=== PATIENT | female | born 1990 | race African-American/Black ===

== ENCOUNTER 2022-10-01 12:15 | Day surgery (SDC) | payer OTHER ==
[2022-10-01 12:44] VITALS: BMI 32.5
[2022-10-01 14:21] LABS: ALT (SGPT) 10 U/L (8-55); AST (SGOT) 9 U/L (5-34); Albumin 3.6 g/dL (3.5-5.0); Alkaline Phosphatase 111 U/L (40-110); Anion Gap 15 mmol/L (10-20); BUN (Urea Nitrogen) 5 mg/dL (7.0-18.7); Bilirubin, Total 0.6 mg/dL (0.2-1.2); Calc. Creatinine Clearance 205 mL/min (70-130); Calcium 9.4 mg/dL (7.8-10.44); Carbon Dioxide 20 mmol/L (22-29); Chloride 106 mmol/L (98-107); Estimated GFR 122; Globulin 3.1 g/dL (2.4-3.5); Glucose 112 mg/dL (70-105); Potassium 3.7 mmol/L (3.5-5.1); Protein, Total 6.7 g/dL (6.0-8.3); Sodium 137 mmol/L (136-145)
[2022-10-01 20:25] LABS: Hemoglobin A1c 5.7 % (4.0-6.0)
== END 2022-10-01 16:25 | disposition home or self-care (01) ==
LOC: CSHLD/OP 12:15
PROVIDERS: ATTEND Family Medicine
DX: Z36.89 Encounter for other specified antenatal screening (principal); O24.419 Gestational diabetes mellitus in pregnancy, unspecified control; Z3A.00 Weeks of gestation of pregnancy not specified
CPT/HCPCS: 36415; 76815; 76819; 80053; 83036

== ENCOUNTER 2022-10-04 20:58 | Emergency (ER) | payer OTHER | END 2022-10-04 22:20 | disposition home or self-care (01) | LOC: CSHERS 20:58 | DX: J01.90 Acute sinusitis, unspecified (principal); B96.89 Other specified bacterial agents as the cause of diseases classified elsewhere; I10 Essential (primary) hypertension; E11.9 Type 2 diabetes mellitus without complications | CPT/HCPCS: 99283 ==

== ENCOUNTER 2022-10-07 12:11 | Day surgery (SDC) | payer OTHER ==
[2022-10-07] MEDS ORDERED: Lactated Ringer's 1,000 ML IV SCH (13:00)
== END 2022-10-07 15:20 | disposition home or self-care (01) ==
LOC: CSHLD/OP 12:11
PROVIDERS: ATTEND Family Medicine
DX: O24.319 Unspecified pre-existing diabetes mellitus in pregnancy, unspecified trimester (principal)
CPT/HCPCS: 76819; 99282

== ENCOUNTER 2023-04-07 17:28 | Emergency (ER) | payer OTHER, SELFPAY ==
[2023-04-07 21:02] LABS: SARS-CoV-2 NAA Rapid Test DETECTED (NotDetected)
== END 2023-04-07 21:41 | disposition home or self-care (01) ==
LOC: CSHERS 17:28
DX: U07.1 COVID-19 (principal); E11.9 Type 2 diabetes mellitus without complications; I10 Essential (primary) hypertension
CPT/HCPCS: 87081; 87430; 99284